=== PATIENT | female | born 1975 | race Caucasian/White ===

== ENCOUNTER 2018-06-20 11:07 | Emergency (ER) | payer MEDICARE, MEDICAID ==
--- NOTE | 2018-06-20 12:36 | ED Physician Documentation ---
PD HPI UPPER EXT INJURY - Stated complaint Stated Complaint: R SIDE ARM/HAND PX - Chief complaint Chief Complaint: Ext Problem - History obtained from History obtained from: Patient - History of Present Illness Location: Right, Shoulder Type of injury: No: Fall, Twist Timing - onset: Yesterday Timing - details: Abrupt onset, Gradual onset, Waxing and waning Worsened by: Moving (lifting arm out and around), Palpating Associated symptoms: Numbness (intermittently going down lateral upper arm and to the middle fingers of the hand. Patient has had prior carpal tunnel, and the fingers numb felt like that, but is not painful at wrist per se.). No: Weakness Review of Systems Constitutional: denies: Fever, Chills Cardiac: denies: Chest pain / pressure, Palpitations Respiratory: denies: Dyspnea, Cough Musculoskeletal: denies: Neck pain, Back pain Neurologic: reports: Numbness. denies: Focal weakness PD PAST MEDICAL HISTORY - Past Medical History Cardiovascular: None Respiratory: None Neuro: None Endocrine/Autoimmune: None - Past Surgical History Past Surgical History: Yes General: Cholecystectomy - Present Medications Home Medications: Ambulatory Orders Medication Instructions Recorded Confirmed Dexamethasone [Decadron] 4 mg PO DAILY #5 tablet 06/20/18 - Allergies Allergies/Adverse Reactions: Allergies Allergy/AdvReac Type Severity Reaction Status Date / Time acetaminophen [From Vicodin] Allergy Nausea Verified 06/15/13 10:44 cyclobenzaprine HCl * Allergy Rash Verified 06/15/13 10:44 [From Flexeril] hydrocodone bitartrate * Allergy Nausea Verified 06/15/13 10:44 [From Vicodin] - Social History Does the pt smoke?: No Smoking Status: Never smoker Does the pt drink ETOH?: No Does the pt have substance abuse?: No - Immunizations Immunizations are current?: Yes Immunizations: TDAP current <10years - POLST Patient has POLST: No PD ED PE NORMAL - Vitals Vital signs reviewed: Yes - General General: Alert and oriented X 3, No acute distress (but does seem uncomfrtable with ROM of the shoulder, mostly abduction. No edema nor pulse deficit in the wrist/hand. ), Well developed/nourished - Neck Neck: Supple, no meningeal sign, No bony TTP, No adenopathy - Cardiac Cardiac: RRR, No murmur - Respiratory Respiratory: Clear bilaterally Results - Vitals Vitals: Vital Signs - 24 hr 06/20/18 06/20/18 11:30 13:57 Temperature 36.3 C L 36.7 C Heart Rate 90 111 H Respiratory 20 20 Rate Blood Pressure 136/102 H 142/95 H O2 Saturation 98 95 Oxygen O2 Source Room air - Rads (name of study) right shoulder Radiology: Prelim report reviewed (no acute process), EMP read contemporaneously, See rad report PD MEDICAL DECISION MAKING - ED course Complexity details: considered differential (seems like some shoulder suprascapular tendonitis, given tender to palpation there and hurts with rotator cuff type movements. No neck pain. ), d/w patient Departure - Departure Disposition: Home, Self Care Clinical Impression: Pain of right scapula Condition: Stable Record reviewed to determine appropriate education?: Yes Instructions: ED Sprain Shoulder Follow-Up: [facility] [Provider Group] Prescriptions: Dexamethasone [Decadron] 4 mg PO DAILY #5 tablet Comments: Use a sling to decrease range of motion but have gentle range of motion several times a day so does not stiffen. Tylenol 4 times a day for the next several days. Decadron steroid anti-inflammatory since the NSAIDs bother her stomach. Recheck if not better over the next several days to a week or so. Your x-ray appears normal. It seems likely to be some inflammation of the tendons or in the shoulder (tendinitis). Discharge Date/Time: 06/20/18 14:14
[2018-06-20] MEDS: ACETAMINOPHEN 325 MG TABLET PO STA (12:58)
[2018-06-20] MEDS: DEXAMETHASONE 10 MG/ML VIAL PO STA (12:59)
[2018-06-20] MEDS ORDERED: CHERRY SYRUP 10 ML UDC PO ONE (12:59)
[2018-06-20 13:58] VITALS: BP 142/95
--- NOTE | 2018-06-20 14:09 | XRAY Report ---
Reason: right shoulder pain without apparent injury Procedure Date: 06/20/2018 Accession Number: [id number] / [id number] Procedure: XR - Shoulder 3 View RT CPT Code: FULL RESULT: EXAM: RIGHT SHOULDER RADIOGRAPHY EXAM DATE: 06/20/2018 01:44 PM. CLINICAL HISTORY: Right shoulder pain without apparent injury. COMPARISON: None. TECHNIQUE: 3 views. FINDINGS: Bones: No fracture or bone lesion. Joints: There is moderate degenerative change of the acromioclavicular joint to include joint space narrowing and osteophyte formation, with subchondral cyst like change. There is under spurring of the acromion. Soft tissues: The visualized hemithorax is unremarkable. No soft tissue swelling. IMPRESSION: Moderate AC joint arthrosis. Under spurring of the acromion may be seen with rotator cuff impingement. Correlate clinically. [facility]
== END 2018-06-20 14:14 | disposition home or self-care (01) ==
LOC: ED 11:07
DX: M25.511 Pain in right shoulder (principal)
CPT/HCPCS: 99283